=== PATIENT | male | born 1960 | race Caucasian/White ===

== ENCOUNTER 2019-04-11 17:09 | Emergency (ER) | payer OTHER ==
[~2019-04-11] VITALS: Ht 165.1 cm; Wt 73.9 kg
[2019-04-11 17:35] VITALS: BP 116/54; Ht 165.1 cm; Wt 73.9 kg
== END 2019-04-11 18:00 | disposition home or self-care (01) ==
LOC: ED 17:09
DX: H60.91 Unspecified otitis externa, right ear (principal); I10 Essential (primary) hypertension

== ENCOUNTER 2019-04-16 10:27 | Emergency (ER) | payer OTHER ==
[~2019-04-16] VITALS: Ht 172.7 cm; Wt 72.1 kg
[2019-04-16 10:37] VITALS: BP 176/81; Ht 172.7 cm; Wt 72.1 kg
== END 2019-04-16 11:04 | disposition home or self-care (01) ==
LOC: ED 10:27
DX: H66.93 Otitis media, unspecified, bilateral (principal); I10 Essential (primary) hypertension; E11.9 Type 2 diabetes mellitus without complications

== ENCOUNTER 2019-05-19 10:22 | Emergency (ER) | payer OTHER ==
[~2019-05-19] VITALS: Ht 172.7 cm; Wt 72.6 kg
[2019-05-19 10:28] VITALS: BP 137/67; Ht 172.7 cm; Wt 72.6 kg
== END 2019-05-19 10:50 | disposition home or self-care (01) ==
LOC: ED 10:22
DX: H66.92 Otitis media, unspecified, left ear (principal); I10 Essential (primary) hypertension; E11.9 Type 2 diabetes mellitus without complications